=== PATIENT | female | born 1965 | race Two or more races ===

== ENCOUNTER 2019-12-04 05:53 | Day surgery (SDC) | payer OTHER | END 2019-12-04 16:00 | disposition home or self-care (01) | LOC: CIR.AMB 05:53 | PROVIDERS: ATTEND Specialist | DX: N60.21 Fibroadenosis of right breast (principal); Z20.828 Contact with and (suspected) exposure to other viral communicable diseases ==

== ENCOUNTER 2020-11-21 09:08 | Outpatient (CLI) | payer OTHER | END 2020-11-21 09:17 | disposition home or self-care (01) | LOC: SONOGRAMA 09:08 → MAMO-SONO 09:30 | PROVIDERS: ATTEND Specialist | DX: N84.0 Polyp of corpus uteri (principal) ==